=== PATIENT | female | born 1965 | race Caucasian/White ===

== ENCOUNTER 2020-09-24 08:35 | Observation (INO) | payer BC, MEDICAID ==
[~2020-09-24] VITALS: Ht 170.2 cm; Wt 90.9 kg
[~2020-09-24 08:35] MED LIST: ESTR0.5T28 PO; GABA600T13 PO; LEVO112T5 PO; QUET-1 PO; TOP100T PO; VENL150C2 PO
--- NOTE | 2020-09-24 08:50 | NUR ---
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
[2020-09-24 08:58] LABS: BASOPHILS % (AUTO) 0.4 % (0-1); EOSINOPHILS % (AUTO) 0.5 % (0-6); HEMATOCRIT 41.3 % (35.0-45.0); HEMOGLOBIN 14.1 g/dl (12.0-16.0); MEAN CORPUSCULAR HEMOGLOBIN 35.2 PG (27.0-31.0); MEAN CORPUSCULAR HGB CONC 34.2 g/dL (33.0-36.5); MEAN CORPUSCULAR VOLUME 102.9 FL (78-98); MEAN PLATELET VOLUME 7.5 FL (7.4-10.4); MONOCYTES # (AUTO) 0.8 X10'3 (0-0.9); MONOCYTES % (AUTO) 9.5 % (2-12); NEUTROPHILS # (AUTO) 6.6 X10'3 (1.8-7.7); NEUTROPHILS % (AUTO) 77.6 % (42-75); PLATELET COUNT 194 X10'3 (140-440); RED BLOOD COUNT 4.01 X10'6 (4.20-5.60); RED CELL DISTRIBUTION WIDTH 12.8 % (11.5-14.5); WHITE BLOOD COUNT 8.5 X10'3 (4.5-11.0)
[2020-09-24] MEDS ORDERED: METO-395 PO (09:06)
[2020-09-24 09:16] LABS: ALANINE AMINOTRANSFERASE 34 U/L (12-78); ALBUMIN 3.6 G/DL (3.4-5.0); ALBUMIN/GLOBULIN RATIO 1.1 (1.1-1.5); ALKALINE PHOSPHATASE 61 IU/L (46-116); ANION GAP 11 (8-16); ASPARTATE AMINO TRANSFERASE 35 U/L (10-37); BLOOD UREA NITROGEN 17 MG/DL (7-18); BUN/CREATININE RATIO 15.2 (6.6-38.0); CALCIUM 8.3 MG/DL (8.5-10.1); CHLORIDE 104 MMOL/L (99-107); CREATININE 1.12 MG/DL (0.40-0.90); GLUCOSE 112 MG/DL (70-104); SODIUM 139 MMOL/L (135-145); TOTAL CARBON DIOXIDE 23.7 MMOL/L (24-32); eGFR 51 ML/MIN
[2020-09-24 09:19] LABS: POTASSIUM 3.9 MMOL/L (3.5-5.1)
--- NOTE | 2020-09-24 09:24 | NUR ---
FAMILY AT BEDSIDE.
--- NOTE | 2020-09-24 09:24 | NUR ---
NO CHEST DISCOMFORT AT THIS TIME.
[2020-09-24] MEDS ORDERED: aspirin 81mg tab.chew PO ONE (10:00)
[2020-09-24] MEDS ORDERED: acetaminophen 325mg tablet PO PRN ×2 (10:35)
[2020-09-24] MEDS ORDERED: metoclopramide 5 mg/ml inj IV PRN (10:35)
[2020-09-24] MEDS ORDERED: HYDROcodone/acetaminophen 5mg/325mg tablet PO PRN (10:35)
[2020-09-24] MEDS ORDERED: potassium Cl 40MEQ/1/2NS 520ml 520 ML IV PRN ×2 (10:35)
[2020-09-24] MEDS ORDERED: magnesium Cl slow-release 64mg tablet PO PRN (10:35)
[2020-09-24] MEDS ORDERED: magnesium hydroxide 30ml (MOM) UD suspension PO PRN (10:35)
[2020-09-24] MEDS ORDERED: bisacodyl 10mg suppository rectal RC PRN (10:35)
[2020-09-24] MEDS ORDERED: ondansetron/PF 4mg/2ml inj IV PRN (10:35)
[2020-09-24] MEDS ORDERED: magnesium 2GM in 50ml NS 50 ML IV PRN (10:35)
[2020-09-24] MEDS ORDERED: mag hydrox/Alum hydrox/simeth 30ml oral suspension PO PRN (10:35)
[2020-09-24] MEDS ORDERED: morphine 2 MG/ML inj. syringe IV PRN ×2 (10:35)
[2020-09-24] MEDS ORDERED: magnesium 4gm in 100ml NS 100 ML IV PRN (10:35)
[2020-09-24] MEDS ORDERED: HYDROcodone/acetaminophen 10/325mg tab PO PRN (10:35)
[2020-09-24] MEDS ORDERED: potassium Cl 20 mEq SR tablet PO PRN ×2 (10:35)
[2020-09-24] MEDS ORDERED: GABA300C PO (11:36)
[2020-09-24] MEDS: normal saline 1000ml 1,000 ML IV SCH ×2 (13:16→20:35)
[2020-09-24 14:14] LABS: URINE AMPHETAMINE SCREEN NEGATIVE (Neg); URINE BARBITUATE SCREEN NEGATIVE (Neg); URINE BENZODIAZEPINES SCREEN NEGATIVE (Neg); URINE CANNABINOID SCREEN NEGATIVE (Neg); URINE COCAINE SCREEN NEGATIVE (Neg); URINE METHADONE SCREEN NEGATIVE (Neg); URINE OPIATE SCREEN NEGATIVE (Neg); URINE PHENCYCLIDINE SCREEN NEGATIVE (Neg)
[2020-09-24] MEDS ORDERED: TOPI25TA15 PO (15:32)
[2020-09-24] MEDS ORDERED: TOP100T PO (15:34)
--- NOTE | 2020-09-24 16:09 | NUR ---
PG SENT TO HOSPITALIST TO NOTIFY OF RESULTS OF TROP, 1.25
--- NOTE | 2020-09-24 18:33 | NUR ---
DR RODRIGUEZ AWARE OF TROPONINS, NO NEW ORDERS, STATES THIS IS EXPECTED
[2020-09-24 19:30] VITALS: BP 151/80
[2020-09-24] MEDS: heparin, porcine 5000 units/ml vial SQ SCH (20:00)
[2020-09-24] MEDS: K and/or MAG REPLACEMENT MC SCH (20:00)
--- NOTE | 2020-09-24 20:25 | NUR ---
PAGER ID: [phone] MESSAGE: [id number] Danielle Vasquez, Admit from [facility]. She takes 4mg Tizanidine PO QHS at home for muscle spasms. She does not have it ordered here. Can I have an order for this medication for her kevin please? Rajwinder ARMENDARIZ [id number] Addendum: 09/24/20 at 2038 by Rajwinder Grayson RN Received call back from Dr Hurtado. Stated she would not give any order for muscle relaxer kevin d/t already of gabapentin and Seroquel
--- NOTE | 2020-09-24 20:36 | NUR ---
Pt alert and oriented, able it make needs known. Able to swallow without difficulty. Taking in po fluids just fine, pt refused NS @100 via IV. States she doesn't need it if shes drinking plenty of water.
[2020-09-24] MEDS ORDERED: quetiapine 100mg tablet PO SCH (21:00)
[2020-09-24] MEDS ORDERED: gabapentin 300mg capsule PO SCH (21:00)
[2020-09-24] MEDS ORDERED: temazepam 15mg capsule PO PRN (21:00)
[2020-09-24] MEDS: topiramate 25mg tablet PO SCH (21:44)
[2020-09-24 22:00] VITALS: BP 151/92
--- NOTE | 2020-09-24 22:09 | NUR ---
Critical Trop 1.09 per Lab. Trop is trending down. Ekg completed per protocol.
[2020-09-25 02:00] VITALS: BP 119/75
[2020-09-25] MEDS: normal saline 1000ml 1,000 ML IV SCH (03:58)
[2020-09-25 06:00] VITALS: BP 114/63
--- NOTE | 2020-09-25 06:00 | NUR ---
Patient in room PCU 3023. I have received report from Dunia ARMENDARIZ and had the opportunity to ask questions and assume patient care.
[2020-09-25] MEDS ORDERED: levoTHYROXINE 112mcg tablet PO SCH (07:00)
[2020-09-25 07:20] LABS: HEMOGLOBIN 14.4 g/dl (12.0-16.0); MEAN CORPUSCULAR HEMOGLOBIN 35.1 PG (27.0-31.0); MEAN CORPUSCULAR HGB CONC 34.2 g/dL (33.0-36.5); MEAN CORPUSCULAR VOLUME 102.5 FL (78-98); MEAN PLATELET VOLUME 7.6 FL (7.4-10.4); PLATELET COUNT 180 X10'3 (140-440); RED CELL DISTRIBUTION WIDTH 12.6 % (11.5-14.5); WHITE BLOOD COUNT 4.6 X10'3 (4.5-11.0)
[2020-09-25 07:29] LABS: ALBUMIN 3.3 G/DL (3.4-5.0); ANION GAP 12 (8-16); BLOOD UREA NITROGEN 15 MG/DL (7-18); CALCIUM 8.3 MG/DL (8.5-10.1); CHLORIDE 108 MMOL/L (99-107); CHOL/HDL RATIO 2.5 (0.00-4.99); CHOLESTEROL 230 MG/DL (0-200); CREATININE 0.94 MG/DL (0.40-0.90); GLUCOSE 93 MG/DL (70-104); HDL CHOLESTEROL 91 MG/DL (35-60); LDL CHOLESTEROL 104 MG/DL (50-100); MAGNESIUM 2.2 MG/DL (1.5-2.4); POTASSIUM 3.6 MMOL/L (3.5-5.1); SODIUM 141 MMOL/L (135-145); TOTAL CARBON DIOXIDE 20.9 MMOL/L (24-32); TRIGLYCERIDES 146 MG/DL (20-135); eGFR 62 ML/MIN
[2020-09-25] MEDS ORDERED: quetiapine 100mg tablet PO SCH (08:00)
[2020-09-25] MEDS: heparin, porcine 5000 units/ml vial SQ SCH (08:00)
[2020-09-25] MEDS ORDERED: aspirin 81mg tablet.DR PO SCH (08:00)
[2020-09-25] MEDS: K and/or MAG REPLACEMENT MC SCH (08:00)
[2020-09-25] MEDS: topiramate 25mg tablet PO SCH (09:52)
[2020-09-25 11:00] VITALS: BP 121/71
== END 2020-09-25 12:10 | disposition home or self-care (01) ==
LOC: ER 08:35 → ED HOLD 10:33 → PCU 3S 20:00
PROVIDERS: ADMIT Family Medicine; ATTEND Family Medicine
DX: I47.1 Supraventricular tachycardia (principal); R79.89 Other specified abnormal findings of blood chemistry; I21.A1 Myocardial infarction type 2; N17.9 Acute kidney failure, unspecified; I10 Essential (primary) hypertension; E03.9 Hypothyroidism, unspecified; F31.9 Bipolar disorder, unspecified; F41.1 Generalized anxiety disorder; G89.29 Other chronic pain; Z98.84 Bariatric surgery status; Z90.710 Acquired absence of both cervix and uterus; Z79.899 Other long term (current) drug therapy; Z88.8 Allergy status to other drugs, medicaments and biological substances
CPT/HCPCS: 36415; 71045; 80048; 80053; 80061; 80305; 83735; 83880; 84439; 84443; 84484; 85025; 85027; 87081; 93005; 93306; 96360; 96361; 99285; G0378; J7030

== ENCOUNTER 2022-01-10 09:59 | Emergency (ER) | payer BC, SELFPAY ==
[~2022-01-10] VITALS: Ht 163.8 cm; Wt 90.9 kg
[~2022-01-10 09:59] MED LIST changes: +GABA300C PO; -GABA600T13 PO; +TOPI25TA15 PO; -VENL150C2 PO
--- NOTE | 2022-01-10 10:33 | NUR ---
elisa OCONNELL at bedside.
[2022-01-10] MEDS ORDERED: normal saline 1000ML IV soln IVB ONE (10:40)
[2022-01-10] MEDS ORDERED: ondansetron/PF 4mg/2ml inj IV ONE (10:40)
[2022-01-10] MEDS ORDERED: diltiazem 5mg/ml 5ml inj. IV ONE (10:40)
[2022-01-10 10:50] LABS: BASOPHILS % (AUTO) 0.6 % (0-1); EOSINOPHILS # (AUTO) 0.1 X10'3 (0-0.9); EOSINOPHILS % (AUTO) 0.9 % (0-6); HEMATOCRIT 40.9 % (35.0-45.0); HEMOGLOBIN 14.2 g/dl (12.0-16.0); LYMPHOCYTES # (AUTO) 1.6 X10'3 (1.1-4.8); LYMPHOCYTES % (AUTO) 20.7 % (21-51); MEAN CORPUSCULAR HEMOGLOBIN 34.4 PG (27.0-31.0); MEAN CORPUSCULAR HGB CONC 34.7 g/dL (33.0-36.5); MEAN CORPUSCULAR VOLUME 99.3 FL (78-98); MEAN PLATELET VOLUME 7.5 FL (7.4-10.4); MONOCYTES # (AUTO) 0.8 X10'3 (0-0.9); NEUTROPHILS # (AUTO) 5.2 X10'3 (1.8-7.7); NEUTROPHILS % (AUTO) 67.8 % (42-75); PLATELET COUNT 216 X10'3 (140-440); RED BLOOD COUNT 4.12 X10'6 (4.20-5.60); RED CELL DISTRIBUTION WIDTH 12.4 % (11.5-14.5); WHITE BLOOD COUNT 7.6 X10'3 (4.5-11.0)
[2022-01-10 11:14] LABS: ALANINE AMINOTRANSFERASE 24 U/L (12-78); ALBUMIN 3.4 G/DL (3.4-5.0); ALKALINE PHOSPHATASE 70 IU/L (46-116); ANION GAP 10 (8-16); ASPARTATE AMINO TRANSFERASE 20 U/L (10-37); BILIRUBIN,TOTAL 0.5 MG/DL (0.1-1.0); BLOOD UREA NITROGEN 16 MG/DL (7-18); BUN/CREATININE RATIO 14.5 (6.6-38.0); CALCIUM 8.7 MG/DL (8.5-10.1); CHLORIDE 108 MMOL/L (99-107); GLUCOSE 108 MG/DL (70-104); SODIUM 140 MMOL/L (135-145); TOTAL CARBON DIOXIDE 21.6 MMOL/L (24-32); TOTAL PROTEIN 6.8 G/DL (6.4-8.2); eGFR 51 ML/MIN
[2022-01-10 14:03] VITALS: BP 118/77
[2022-01-10] MEDS ORDERED: QUET300T20 PO (14:41)
[2022-01-10] MEDS ORDERED: TIZA-205 PO (14:41)
[2022-01-10] MEDS ORDERED: CARV-50 PO (14:58)
[2022-01-10] MEDS ORDERED: FLEC50TA28 PO (14:58)
== END 2022-01-10 14:37 | disposition home or self-care (01) ==
LOC: ER 09:59
DX: I47.1 Supraventricular tachycardia (principal); G43.909 Migraine, unspecified, not intractable, without status migrainosus; F32.A Depression, unspecified; Z79.899 Other long term (current) drug therapy; Z88.1 Allergy status to other antibiotic agents; E06.9 Thyroiditis, unspecified
CPT/HCPCS: 36415; 71045; 80053; 83880; 84484; 85025; 93005; 96361; 96374; 96375; 99285; J2405; J3490; J7030

== ENCOUNTER 2022-05-01 07:59 | Emergency (ER) | payer BC ==
[~2022-05-01] VITALS: Ht 167.6 cm; Wt 90.0 kg
[~2022-05-01 07:59] MED LIST changes: +CARV-50 PO; +FLEC50TA28 PO; -QUET-1 PO; +QUET300T20 PO; +TIZA-205 PO; -TOP100T PO; -TOPI25TA15 PO
[2022-05-01 08:20] LABS: BASOPHILS % (AUTO) 0.6 % (0-1); EOSINOPHILS # (AUTO) 0.1 X10'3 (0-0.9); HEMOGLOBIN 13.7 g/dl (12.0-16.0); LYMPHOCYTES # (AUTO) 1.7 X10'3 (1.1-4.8); LYMPHOCYTES % (AUTO) 25.1 % (21-51); MEAN CORPUSCULAR HEMOGLOBIN 33.9 PG (27.0-31.0); MEAN CORPUSCULAR HGB CONC 33.5 g/dL (33.0-36.5); MONOCYTES # (AUTO) 0.6 X10'3 (0-0.9); MONOCYTES % (AUTO) 9.4 % (2-12); NEUTROPHILS # (AUTO) 4.2 X10'3 (1.8-7.7); NEUTROPHILS % (AUTO) 63.9 % (42-75); PLATELET COUNT 215 X10'3 (140-440); RED BLOOD COUNT 4.06 X10'6 (4.20-5.60); WHITE BLOOD COUNT 6.6 X10'3 (4.5-11.0)
[2022-05-01] MEDS ORDERED: adenosine 3mg/ml 2ml vial IV ONE (08:20)
[2022-05-01 08:26] VITALS: BP 94/60
[2022-05-01 08:34] LABS: ALANINE AMINOTRANSFERASE 23 U/L (12-78); ALBUMIN 3.5 G/DL (3.4-5.0); ALBUMIN/GLOBULIN RATIO 1.1 (1.1-1.5); ALKALINE PHOSPHATASE 62 IU/L (46-116); ANION GAP 8 (8-16); ASPARTATE AMINO TRANSFERASE 24 U/L (10-37); BILIRUBIN,TOTAL 0.5 MG/DL (0.1-1.0); BLOOD UREA NITROGEN 15 MG/DL (7-18); BUN/CREATININE RATIO 12.8 (6.6-38.0); CHLORIDE 107 MMOL/L (99-107); CREATININE 1.17 MG/DL (0.40-0.90); GLUCOSE 118 MG/DL (70-104); POTASSIUM 3.5 MMOL/L (3.5-5.1); SODIUM 140 MMOL/L (135-145); TOTAL CARBON DIOXIDE 25.5 MMOL/L (24-32); TOTAL PROTEIN 6.7 G/DL (6.4-8.2); eGFR 48 ML/MIN
[2022-05-01 08:35] LABS: MAGNESIUM 1.8 MG/DL (1.5-2.4)
== END 2022-05-01 13:47 | disposition home or self-care (01) ==
LOC: ER 08:00
DX: I47.1 Supraventricular tachycardia (principal); R42 Dizziness and giddiness; G43.909 Migraine, unspecified, not intractable, without status migrainosus; F41.9 Anxiety disorder, unspecified; F31.9 Bipolar disorder, unspecified; Z90.710 Acquired absence of both cervix and uterus; Z98.890 Other specified postprocedural states; Z88.8 Allergy status to other drugs, medicaments and biological substances; Z79.899 Other long term (current) drug therapy
CPT/HCPCS: 36415; 71045; 80053; 83735; 83880; 84484; 85025; 93005; 96374; 99285; J0153; 99284